=== PATIENT | female | born 2000 | race Caucasian/White ===

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

== ENCOUNTER 2020-12-08 20:12 | Emergency (ER) | payer BC, MEDICAID ==
[~2020-12-08] VITALS: Ht 152.4 cm; Wt 47.6 kg
[2020-12-08 20:35] VITALS: BP_SYST 106
[2020-12-08 21:34] VITALS: BP_SYST 106
== END 2020-12-08 21:35 | disposition home or self-care (01) ==
LOC: SED 20:12
DX: S33.9XXA Sprain of unspecified parts of lumbar spine and pelvis, initial encounter (principal); V49.9XXA Car occupant (driver) (passenger) injured in unspecified traffic accident, initial encounter; Y93.89 Activity, other specified; Y92.413 State road as the place of occurrence of the external cause; Y99.8 Other external cause status
CPT/HCPCS: 72100-TC; 99283

== ENCOUNTER 2022-09-01 13:55 | Emergency (ER) | payer BC ==
[~2022-09-01] VITALS: Ht 152.4 cm; Wt 59.0 kg
[2022-09-01 14:02] VITALS: BP_SYST 110
--- NOTE | 2022-09-01 15:03 | NUR ---
Patient to ER bed H2 to gown for evaluation. Side rails up.
--- NOTE | 2022-09-01 15:05 | NUR ---
Pt brought by self, A&Ox4, pt presents to ER with headache and nausea after she banged hed with a drawer, no open wounds noted, will cont to monitor.
--- NOTE | 2022-09-01 15:14 | NUR ---
DR NEWTON AT CHAIRSIDE FOR EVALUATION
--- NOTE | 2022-09-01 17:29 | NUR ---
Patient given written and verbal discharge instructions and verbalizes understanding. ER MD discussed with patient the results and treatment provided. Patient in stable condition. ID arm band removed. Rx of NONE given. Patient educated on pain management and to follow up with PMD. Pain Scale 0/10. Opportunity for questions provided and answered. Medication side effect fact sheet provided.
== END 2022-09-01 17:29 | disposition home or self-care (01) ==
LOC: SED 13:55
DX: S09.90XA Unspecified injury of head, initial encounter (principal); R42 Dizziness and giddiness; Z79.899 Other long term (current) drug therapy; W22.8XXA Striking against or struck by other objects, initial encounter; Y93.89 Activity, other specified; Y92.89 Other specified places as the place of occurrence of the external cause; Y99.8 Other external cause status
CPT/HCPCS: 70450-TC; 81025; 99284

== ENCOUNTER 2022-09-07 09:04 | Emergency (ER) | payer BC ==
[~2022-09-07] VITALS: Ht 152.4 cm; Wt 59.0 kg
[2022-09-07 09:25] VITALS: BP_SYST 102
--- NOTE | 2022-09-07 09:35 | NUR ---
Patient triaged and placed in waiting room. VSS and patient appears in no acute distress at this time. Accompanied by self, awaiting available bed, and MD notified of need for MSE.
--- NOTE | 2022-09-07 09:40 | NUR ---
ER at bedside examining patient.
--- NOTE | 2022-09-07 10:18 | NUR ---
Patient given written and verbal discharge instructions and verbalizes understanding. ER MD discussed with patient the results and treatment provided. Patient in stable condition. ID arm band removed. NO Rx of given. Patient educated on pain management and to follow up with PMD. Pain Scale 0. Opportunity for questions provided and answered. Medication side effect fact sheet provided.
== END 2022-09-07 10:18 | disposition home or self-care (01) ==
LOC: SED 09:04
DX: G24.5 Blepharospasm (principal); H57.12 Ocular pain, left eye; Z79.899 Other long term (current) drug therapy
CPT/HCPCS: 99281

== ENCOUNTER 2023-07-21 08:24 | Emergency (ER) | payer BC ==
[~2023-07-21] VITALS: Ht 152.4 cm; Wt 59.0 kg
[2023-07-21 08:35] VITALS: BP_SYST 95; PULSE 70; RESP 18; TEMP 98.1; O2SAT 98
[2023-07-21] MEDS ORDERED: KETOROLAC TROMETHAMINE 60 MG/2 ML VIAL IM ONE (08:45)
[2023-07-21 09:13] LABS: BILIRUBIN,URINE NEGATIVE (NEGATIVE); CLARITY/URINE CLEAR (CLEAR); COLOR,URINE YELLOW (YELLOW); GLUCOSE,URINE NEGATIVE (NEGATIVE); KETONES,URINE NEGATIVE (NEGATIVE); PH,URINE 6.5 (5.0-8.0); PROTEIN URINE NEGATIVE (NEGATIVE)
[2023-07-21 09:14] LABS: BLOOD, URINE TRACE (NEGATIVE); LEUKOCYTE ESTERASE ,URINE NEGATIVE (NEGATIVE); NITRITE, URINE NEGATIVE (NEGATIVE); UROBILINOGEN,URINE 0.2 (0.2-1.0)
[2023-07-21 09:17] LABS: BACTERIA,URINE RARE /HPF (None Seen); WBC,URINE 0-3 /HPF (0-3)
[2023-07-21 09:53] LABS: BASOPHILS % (AUTO) 0.7 % (0.0-2.0); EOSINOPHILS # (AUTO) 0.1 K/uL (0.0-0.4); EOSINOPHILS % (AUTO) 1.5 % (0.0-4.0); HEMATOCRIT 35.5 % (36-48); LYMPHOCYTES # (AUTO) 2.8 K/uL (1.0-5.5); LYMPHOCYTES % (AUTO) 41.9 % (20.5-51.5); MEAN CORPUSCULAR HEMOGLOBIN 20 pg (27-31); MEAN CORPUSCULAR HGB CONC 31 % (32-36); MEAN CORPUSCULAR VOLUME 64 fL (79.0-98.0); MONOCYTES # (AUTO) 0.4 K/uL (0.0-1.0); MONOCYTES % (AUTO) 6.4 % (1.7-9.3); NEUTROPHILS # (AUTO) 3.2 K/uL (1.8-7.7); NEUTROPHILS % (AUTO) 49.5 % (40.0-70.0); PLATELET COUNT (AUTO) 320 K/uL (130-430); RED BLOOD CELL COUNT(AUTO) 5.55 MIL/uL (4.2-6.2); RED CELL DISTRIBUTION WIDTH 15.9 % (9.0-15.0); WHITE BLOOD COUNT (AUTO) 6.6 K/uL (4.8-10.8)
[2023-07-21 10:10] LABS: CALCIUM 8.1 mg/dL (8.4-11.0); CREATININE 0.56 mg/dL (0.55-1.30); POTASSIUM 4.2 mmol/L (3.5-5.1)
[2023-07-21 10:13] LABS: ALBUMIN 3.4 g/dL (3.4-4.8); TOTAL BILIRUBIN 0.4 mg/dL (0.0-1.0); TOTAL PROTEIN, SERUM 7.1 g/dL (6.4-8.3)
[2023-07-21 10:15] LABS: ANISOCYTOSIS 1+; HYPOCHROMASIA 1+; TARGET CELLS RARE
[2023-07-21] MEDS ORDERED: METR-154 PO (13:36)
[2023-07-21] MEDS ORDERED: NAPR-690 PO (13:36)
== END 2023-07-21 13:36 | disposition home or self-care (01) ==
LOC: SED 08:24
DX: N76.0 Acute vaginitis (principal); R10.32 Left lower quadrant pain; Z79.899 Other long term (current) drug therapy
CPT/HCPCS: 99285; 74176; 76856; 80053; 81000; 83690; 85025; 87210; 36415; 76376; 81025; 96372; J1885

== ENCOUNTER 2024-02-20 16:33 | Emergency (ER) | payer BC ==
[~2024-02-20] VITALS: Ht 152.4 cm; Wt 59.0 kg
[~2024-02-20 16:33] MED LIST: METR-154 PO; NAPR-690 PO
[2024-02-20 16:38] VITALS: BP_SYST 114; PULSE 72; RESP 18; TEMP 98; O2SAT 100
[2024-02-20] MEDS ORDERED: IBUP-1969 PO (17:19)
[2024-02-20 17:43] VITALS: BP_SYST 114; PULSE 72; RESP 18; TEMP 98; O2SAT 100
== END 2024-02-20 17:43 | disposition home or self-care (01) ==
LOC: SED 16:33
DX: M25.512 Pain in left shoulder (principal); Z87.828 Personal history of other (healed) physical injury and trauma; Z79.899 Other long term (current) drug therapy
CPT/HCPCS: 73030; 99283